=== PATIENT | female | born 1995 | race American Indian/Alaskan Native ===

== ENCOUNTER 2021-01-28 16:02 | Emergency (ER) | payer SELFPAY ==
[2021-01-28 16:14] VITALS: BP 117/79
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
== END 2021-01-28 18:44 | disposition home or self-care (01) ==
LOC: ED 16:02
DX: M54.5 Low back pain (principal); M25.562 Pain in left knee; Z98.890 Other specified postprocedural states; Z79.899 Other long term (current) drug therapy; V87.7XXA Person injured in collision between other specified motor vehicles (traffic), initial encounter; Y93.89 Activity, other specified; Y92.488 Other paved roadways as the place of occurrence of the external cause; Y99.8 Other external cause status
CPT/HCPCS: 72100; 99283